=== PATIENT | male | born 1945 | race Caucasian/White ===

== ENCOUNTER → 2020-04-07 | Outpatient (CLI) | LOC: LAB FS 14:38 | PROVIDERS: ATTEND Family Medicine | DX: R30.0 Dysuria (principal) | CPT/HCPCS: 87088 ==

== ENCOUNTER → 2021-03-28 | Outpatient (CLI) | payer OTHER ==
--- NOTE | 2021-03-28 09:21 | Diagnostic Imaging Report ---
INDICATION: Dizziness. TECHNIQUE: Routine non contrast-enhanced axial images were obtained from the skull base to the vertex. Auto Exposure Controls were utilized during the CT exam to meet ALARA standards for radiation dose reduction COMPARISON: None. FINDINGS: The ventricles and cortical sulci are diffusely prominent, compatible with age-related volume loss. There is no midline shift or mass-effect. No acute intra-axial hemorrhage is seen. There are no abnormal areas of increased or decreased density to suggest acute hemorrhage or edema. No extra-axial masses or collections are present. The bony calvarium is intact. The visualized paranasal sinuses are unremarkable. The mastoid air cells are clear. IMPRESSION: 1. No acute intracranial abnormality. No CT evidence of mass, acute infarct or intracranial hemorrhage. Dictated by: Dictated on workstation # [id number]
== END ==
LOC: RAD FS 08:53
PROVIDERS: ATTEND Nurse Practitioner
DX: Z01.89 Encounter for other specified special examinations (principal); R42 Dizziness and giddiness
CPT/HCPCS: 70450

== ENCOUNTER → 2021-05-03 | Outpatient (CLI) | payer OTHER | LOC: CARD 13:30 | PROVIDERS: ATTEND Internal Medicine Cardiovascular Disease | DX: I11.9 Hypertensive heart disease without heart failure (principal); I25.10 Atherosclerotic heart disease of native coronary artery without angina pectoris | CPT/HCPCS: 93306 ==

== ENCOUNTER → 2021-08-28 | Outpatient (CLI) | payer OTHER ==
--- NOTE | 2021-08-28 11:29 | Diagnostic Imaging Report ---
PROCEDURE: CT abdomen and pelvis without contrast. TECHNIQUE: Multiple contiguous axial images were obtained through the abdomen and pelvis without the use of intravenous contrast. Auto Exposure Controls were utilized during the CT exam to meet ALARA standards for radiation dose reduction. INDICATION: Prostate carcinoma. No prior studies are available for comparison. FINDINGS: The lung bases are clear. The liver contains multiple circumscribed low attenuation lesions most consistent with cysts. The largest measures approximately 18 mm in size. Gallbladder is unremarkable. No biliary ductal dilatation is seen. The pancreas and spleen are unremarkable. No adrenal mass is detected. Right kidney does contain a nonobstructing stone in the lower pole approximately 11 mm in size. Left kidney is unremarkable. There is no hydronephrosis. The aorta is normal caliber. No central retroperitoneal or mesenteric lymphadenopathy is identified. Small and large bowel loops are normal caliber. No obstruction is seen. There is no free fluid or fluid collection. No iliac or inguinal lymphadenopathy is identified. Bladder is unremarkable. There is some mild prostatic enlargement. No osteolytic or blastic lesions are seen. IMPRESSION: 1. Hepatic cysts. 2. 11 mm nonobstructing right lower pole renal calculus. No definite ureteral calculi or hydronephrosis is identified. 3. Prostatomegaly. 4. No evidence of abdominal or pelvic lymphadenopathy or metastatic disease. Dictated by: Dictated on workstation # [id number]
--- NOTE | 2021-08-28 14:24 | Diagnostic Imaging Report ---
INDICATION: Prostate carcinoma. TECHNIQUE: The patient was administered 26.5 mCi of technetium 99m MDP intravenously and whole-body imaging was performed after a three-hour delay. COMPARISON: No prior bone scans are available for comparison. FINDINGS: There is normal uptake of activity by the axial and appendicular skeleton. There is uptake by the kidneys with excretion into the urinary bladder. No suspicious uptake is identified to suggest osseous metastatic disease. There is some degenerative uptake in the bilateral shoulders and wrists as well as the right foot. IMPRESSION: No scintigraphic evidence of osseous metastatic disease. Dictated by: Dictated on workstation # [id number]
== END ==
LOC: CARD 12:00
PROVIDERS: ATTEND Urology
DX: C61 Malignant neoplasm of prostate (principal); K76.89 Other specified diseases of liver; N20.0 Calculus of kidney
CPT/HCPCS: 74176; 78306

== ENCOUNTER 2022-06-18 11:21 | Emergency (ER) | payer OTHER ==
[~2022-06-18] VITALS: Ht 175.3 cm; Wt 81.6 kg
[2022-06-18 12:20] LABS: BILIRUBIN,URINE NEGATIVE (NEGATIVE); CLARITY,URINE CLEAR; COLOR,URINE YELLOW; GLUCOSE, URINE (UA) NEGATIVE (NEGATIVE); KETONES,URINE NEGATIVE (NEGATIVE); LEUKOCYTE ESTERASE ,URINE 1+ (NEGATIVE); NITRITE,URINE NEGATIVE (NEGATIVE); PROTEIN,URINE NEGATIVE (NEGATIVE)
[2022-06-18] MEDS ORDERED: KETOROLAC 30 MG/ML VIAL IVP ONE (12:30)
[2022-06-18 12:31] LABS: BACTERIA,URINE NEGATIVE /HPF; RBC,URINE RARE /HPF
[2022-06-18 12:32] LABS: SQUAMOUS EPITHELIAL CELL,UR RARE /HPF
--- NOTE | 2022-06-18 12:39 | Diagnostic Imaging Report ---
EXAMINATION: CT abdomen and pelvis without contrast. TECHNIQUE: Multiple contiguous axial images were obtained through the abdomen and pelvis without the use of intravenous contrast. All CT scans use one or more of the following dose optimizing techniques: automated exposure control, MA and/or KvP adjustment based on patient size and exam type or iterative reconstruction. HISTORY: right low back pain COMPARISON: 08/28/2021 FINDINGS: Lung bases: The lung bases are clear. Solid organs: Multiple hepatic hypodensities are present, largest of which is compatible with a hepatic cyst. The gallbladder is normal. There is no biliary ductal dilation. Pancreas is normal. Spleen is normal. Adrenal glands are normal. There is a 1.2 cm nonobstructing right renal calculus. No hydronephrosis. Bowel: The stomach and small bowel are normal without obstruction. The colon and appendix are normal. Peritoneum: There is no intraperitoneal free fluid or free air. No suspicious lymphadenopathy. Vasculature: Normal without aneurysm. Musculoskeletal: Degenerative changes of the spine without suspicious osseous lesion or compression fracture. Pelvis: The prostate gland is either diminutive or surgically absent. The urinary bladder is normal. IMPRESSION: 1. No acute abnormality within the abdomen or pelvis. 2. A 1.2 cm nonobstructing right renal calculus. Dictated by: Dictated on workstation # [id number]
--- NOTE | 2022-06-18 12:42 | Diagnostic Imaging Report ---
EXAMINATION: Abdomen 1 view HISTORY: right flank pain COMPARISON: 06/18/2022 FINDINGS: There is a moderate amount of gas and stool throughout the colon. Nonobstructive bowel gas pattern. There is 1.2 cm calculus overlying the right kidney. The lung bases are clear. The osseous structures are intact. IMPRESSION: Moderate stool burden without other acute abnormality in the abdomen. A 1.2 cm calculus overlying the right kidney. Dictated by: Dictated on workstation # [id number]
[2022-06-18 12:55] LABS: BASOPHILS % (AUTO) 1 % (0-10); EOSINOPHILS # (AUTO) 0.3 10^3/uL (0.0-0.3); EOSINOPHILS % (AUTO) 6 % (0-10); HEMATOCRIT 47 % (40-54); HEMOGLOBIN 16.4 g/dL (13.3-17.7); LYMPHOCYTES # (AUTO) 1.6 10^3/uL (1.0-4.0); LYMPHOCYTES % (AUTO) 32 % (12-44); MEAN CORPUSCULAR HEMOGLOBIN 32 pg (25-34); MEAN CORPUSCULAR HGB CONC 35 g/dL (32-36); MEAN CORPUSCULAR VOLUME 92 fL (80-99); MONOCYTES # (AUTO) 0.5 10^3/uL (0.0-1.0); MONOCYTES % (AUTO) 10 % (0-12); NEUTROPHILS # (AUTO) 2.5 10^3/uL (1.8-7.8); NEUTROPHILS % (AUTO) 51 % (42-75); PLATELET COUNT 201 10^3/uL (130-400)
--- NOTE | 2022-06-18 13:12 | ED Back Pain ---
General Chief Complaint: Back Problems Stated Complaint: BACK PAIN Nursing Triage Note: PT AMB TO TRAIGE W C/O BACK PAIN THAT RADIATES TO HIS RIGHT SIDE DOWN TO GROIN SX YESTERDAY. PT HAS HX OF KIDNEY STONES, BELIEVES THIS PAIN COULD BE R/T KIDNEY STONES. PT A&OX4. Source of Information: Patient Exam Limitations: No Limitations History of Present Illness Date Seen by Provider: Jun 18, 2022 Time Seen by Provider: 13:11 Initial Comments To ER with right flank pain that radiates down to the right groin started yesterday. He had trouble sleeping last night because of it. History of a kidney stone and believes it could be related to that. Location: Lumbar Spine Timing/Duration: 1-2 Days Severity: Moderate Associated Symptoms: denies symptoms Allergies and Home Medications Allergies Coded Allergies: No Known Drug Allergies (Unverified , 06/18/22) Patient Home Medication List Home Medication List Reviewed: Yes Review of Systems Constitutional: see HPI EENTM: see HPI Respiratory: no symptoms reported Cardiovascular: no symptoms reported Genitourinary: no symptoms reported Musculoskeletal: no symptoms reported Skin: no symptoms reported Psychiatric/Neurological: No Symptoms Reported Past Misxfei-Kliqcs-Isrboa Hx Patient Social History Tobacco Use?: No Use of E-Cig and/or Vaping dev: No Substance use?: No Alcohol Use?: Yes Alcohol type: Beer Alcohol Frequency: Several times a month Immunizations Up To Date Influenza Vaccine Up-to-Date: No; Not Current First/Initial COVID19 Vaccinat: [address]: 2020 Third COVID19 Vaccination Date: NONE COVID19 Vaccine [employer] Hand: [place] Physical Exam Vital Signs Vital Signs - First Documented 06/18/22 11:30 Temp 36.4 Pulse 71 Resp 20 B/P (MAP) 146/85 (105) Pulse Ox 99 O2 Delivery Room Air Capillary Refill : Less Than 3 Seconds Height, Weight, BMI Height: '" Weight: lbs. oz. kg; 26.00 BMI Method: General Appearance: No Apparent Distress, WD/WN HEENT: PERRL/EOMI, TMs Normal Neck: Full Range of Motion, Normal Inspection Cardiovascular: Regular Rate, Rhythm, Normal Peripheral Pulses Respiratory: Normal Breath Sounds, No Accessory Muscle Use, No Respiratory Distress Gastrointestinal: Normal Bowel Sounds, Non Tender, Soft Extremity: Normal Capillary Refill, Normal Inspection Neurologic/Psychiatric: Alert, Oriented x3 Skin: Normal Color, Warm/Dry Progress/Results/Core Measures Results/Orders Lab Results Laboratory Tests Test 06/18/22 11:39 06/18/22 12:47 Range/Units Urine Color YELLOW Urine Clarity CLEAR Urine pH 6.0 5-9 Urine Specific [place] <=1.005 1.016-1.022 Urine Protein NEGATIVE NEGATIVE Urine Glucose (UA) NEGATIVE NEGATIVE Urine Ketones NEGATIVE NEGATIVE Urine Nitrite NEGATIVE NEGATIVE Urine Bilirubin NEGATIVE NEGATIVE Urine Urobilinogen 0.2 < = 1.0 MG/DL Urine Leukocyte Esterase 1+ H NEGATIVE Urine RBC (Auto) TRACE-I H NEGATIVE Urine RBC RARE /HPF Urine WBC 2-5 /HPF Urine Squamous Epithelial Cells RARE /HPF Urine Crystals NONE /LPF Urine Bacteria NEGATIVE /HPF Urine Casts NONE /LPF Urine Mucus NEGATIVE /LPF Urine Culture Indicated NO White Blood Count 5.0 4.3-11.0 10^3/uL Red Blood Count 5.13 4.30-5.52 10^6/uL Hemoglobin 16.4 13.3-17.7 g/dL Hematocrit 47 40-54 % Mean Corpuscular Volume 92 80-99 fL Mean Corpuscular Hemoglobin 32 25-34 pg Mean Corpuscular Hemoglobin Concent 35 32-36 g/dL Red Cell Distribution Width 12.8 10.0-14.5 % Platelet Count 201 130-400 10^3/uL Mean Platelet Volume 9.0 9.0-12.2 fL Immature Granulocyte % (Auto) 0 % Neutrophils (%) (Auto) 51 42-75 % Lymphocytes (%) (Auto) 32 12-44 % Monocytes (%) (Auto) 10 0-12 % Eosinophils (%) (Auto) 6 0-10 % Basophils (%) (Auto) 1 0-10 % Neutrophils # (Auto) 2.5 1.8-7.8 10^3/uL Lymphocytes # (Auto) 1.6 1.0-4.0 10^3/uL Monocytes # (Auto) 0.5 0.0-1.0 10^3/uL Eosinophils # (Auto) 0.3 0.0-0.3 10^3/uL Basophils # (Auto) 0.0 0.0-0.1 10^3/uL Immature Granulocyte # (Auto) 0.0 0.0-0.1 10^3/uL Sodium Level 142 135-145 MMOL/L Potassium Level 3.9 3.6-5.0 MMOL/L Chloride Level 103 98-107 MMOL/L Carbon Dioxide Level 29 21-32 MMOL/L Anion Gap 10 5-14 MMOL/L Blood Urea Nitrogen 18 7-18 MG/DL Creatinine 0.96 0.60-1.30 MG/DL Estimat Glomerular Filtration Rate 82 BUN/Creatinine Ratio 19 Glucose Level 83 70-105 MG/DL Calcium Level 9.5 8.5-10.1 MG/DL My Orders Orders - KIRSTEN REAGAN APRN Ua Culture If Indicated (06/18/22 11:51) Ct Abd/Pelvis Wo(Kidney Stone) (06/18/22 11:51) Cbc With Automated Diff (06/18/22 12:18) Basic Metabolic Panel (06/18/22 12:18) Ed Iv/Invasive Line Start (06/18/22 12:18) Abdomen/Kub 1view (06/18/22 12:18) Ketorolac Injection (Toradol Injection) (06/18/22 12:30) Medications Given in ED Current Medications Medications Dose Ordered Sig/Margarita Route Start Time Stop Time Status Last Admin Dose Admin Ketorolac Tromethamine 15 mg ONCE ONCE IVP 06/18/22 12:30 06/18/22 12:31 DC 06/18/22 12:45 15 MG Vital Signs/I&O 06/18/22 11:30 Temp 36.4 Pulse 71 Resp 20 B/P (MAP) 146/85 (105) Pulse Ox 99 O2 Delivery Room Air Blood Pressure Mean: 105 Departure Communication (Admissions) NAME: JUSTIN STOLL [facility] REC#: [id number] PT STATUS: REG ER : 1945 PHYSICIAN: KIRSTEN REAGAN APRN ADMIT DATE: 06/18/22/ER Signed Date of Exam:06/18/22 CT ABD/PELVIS WO(KIDNEY STONE) EXAMINATION: CT abdomen and pelvis without contrast. TECHNIQUE: Multiple contiguous axial images were obtained through the abdomen and pelvis without the use of intravenous contrast. All CT scans use one or more of the following dose optimizing techniques: automated exposure control, MA and/or KvP adjustment based on patient size and exam type or iterative reconstruction. HISTORY: right low back pain COMPARISON: 08/28/2021 FINDINGS: Lung bases: The lung bases are clear. Solid organs: Multiple hepatic hypodensities are present, largest of which is compatible with a hepatic cyst. The gallbladder is normal. There is no biliary ductal dilation. Pancreas is normal. Spleen is normal. Adrenal glands are normal. There is a 1.2 cm nonobstructing right renal calculus. No hydronephrosis. Bowel: The stomach and small bowel are normal without obstruction. The colon and appendix are normal. Peritoneum: There is no intraperitoneal free fluid or free air. No suspicious lymphadenopathy. Vasculature: Normal without aneurysm. Musculoskeletal: Degenerative changes of the spine without suspicious osseous lesion or compression fracture. Pelvis: The prostate gland is either diminutive or surgically absent. The urinary bladder is normal. IMPRESSION: 1. No acute abnormality within the abdomen or pelvis. 2. A 1.2 cm nonobstructing right renal calculus. Dictated by: Dictated on workstation # [id number] Dict: 06/18/22 1234 Trans: 06/18/22 1243 [facility] [id number] Interpreted by: BETH ECHEVARRIA DO Electronically signed by: BETH ECHEVARRIA DO 06/18/22 1243 Impression Primary Impression: Right flank pain Disposition: 01 HOME, SELF-CARE Condition: Stable Departure-Patient Inst. Decision time for Depature: 13:12 Referrals: ZANE LAGUERRE MD (PCP/Family) Primary Care Physician Patient Instructions: Flank Pain ED Add. Discharge Instructions: 1. Return to ER for any concerns. Follow-up with your doctor next week. Your kidney stone is still in the kidney and not in a location to cause pain. Your pain is most likely musculoskeletal in nature. All discharge instructions reviewed with patient and/or family. Voiced understanding. Scripts Hydrocodone/Acetaminophen (Hydrocodone-Acetamin 5-325 mg) 5 Mg-325 Mg Tablet 1 TAB PO Q4H PRN for PAIN-MODERATE (5-7), #14 TAB Prov: KIRSTEN REAGAN APRN 06/18/22 KIRSTEN REAGAN APRN Jun 18, 2022 13:12
[2022-06-18 13:15] LABS: POTASSIUM 3.9 MMOL/L (3.6-5.0)
[2022-06-18 13:16] LABS: CALCIUM 9.5 MG/DL (8.5-10.1)
[2022-06-18 13:20] LABS: CREATININE SERUM 0.96 MG/DL (0.60-1.30)
[2022-06-18] MEDS ORDERED: ACHD5005 PO (13:35)
[2022-06-18 13:50] VITALS: BP 146/85
== END 2022-06-18 13:50 | disposition home or self-care (01) ==
LOC: EDUNIT# 11:21 → ER 11:22
DX: R10.9 Unspecified abdominal pain (principal)
CPT/HCPCS: 36415; 74018; 74176; 80048; 81000; 85025

== ENCOUNTER → 2022-09-03 | Outpatient (CLI) | payer OTHER ==
[~2022-09-03] MED LIST: ACHD5005 PO
[2022-09-03 11:01] VITALS: BP 148/87
== END ==
LOC: CARD 10:13
PROVIDERS: ATTEND Internal Medicine Cardiovascular Disease
DX: I25.10 Atherosclerotic heart disease of native coronary artery without angina pectoris (principal); I10 Essential (primary) hypertension

== ENCOUNTER → 2023-03-14 | Outpatient (CLI) | payer OTHER ==
--- NOTE | 2023-03-14 13:40 | Diagnostic Imaging Report ---
CLINICAL INDICATION: Patient with chronic sinusitis. EXAM: Axial CT scan of the maxillofacial structures without IV contrast using fusion protocol. Coronal and sagittal reformations were performed. Auto Exposure Controls were utilized during the CT exam to meet ALARA standards for radiation dose reduction. COMPARISON: CT scan of the head without contrast dated 03/28/2021. FINDINGS: PARANASAL SINUSES: FRONTAL: Unremarkable. ETHMOID: Unremarkable. MAXILLARY: Unremarkable. SPHENOID: Stable minimal mucosal thickening anteriorly. OTHER PARANASAL SINUS FINDINGS: None. NASAL SEPTUM: There is 3 mm of rightward nasal septal deviation anteriorly. There is a 3 mm leftward-directed nasal septal bony spur posteriorly. VISUALIZED TEMPORAL BONE STRUCTURES: Unremarkable. BONY STRUCTURES: Unremarkable. EXTRACRANIAL SOFT TISSUE/ ORBITS: Unremarkable. IMPRESSION: 1: There is stable minimal sphenoid sinus mucosal thickening. 2: There is stable mild rightward nasal septal deviation and a leftward-directed nasal septal bony spur posteriorly. Dictated by: Dictated on workstation # [id number]
== END ==
LOC: RAD 11:34
PROVIDERS: ATTEND Nurse Practitioner
DX: Z01.89 Encounter for other specified special examinations (principal); J34.2 Deviated nasal septum; J34.89 Other specified disorders of nose and nasal sinuses
CPT/HCPCS: 70486